=== PATIENT | female | born 1970 | race Caucasian/White ===

== ENCOUNTER 2017-02-09 19:26 | Emergency (ER) | payer SELFPAY ==
[~2017-02-09] VITALS: Ht 162.6 cm; Wt 67.2 kg
[~2017-02-09 19:26] MED LIST: CLIN300C8 PO; PRED20TA PO
[2017-02-09 19:36] VITALS: BP 138/80
[2017-02-09] MEDS ORDERED: ACETAMINOPHEN 325 MG TABLET PO ONE (19:45)
[2017-02-09] MEDS ORDERED: DIPHTH,PERTUSS(ACELL),TET TOX 0.5 ML DISP.SYRIN. VAX IM ONE (19:45)
--- NOTE | 2017-02-09 19:52 | PHYS DOC ---
Past History Past Medical History: Bipolar, Depression Past Surgical History: Other Alcohol Use: Occasionally Drug Use: None Adult General Chief Complaint Chief Complaint: FOOT INJURY PAIN HPI HPI 46-year-old female presenting to the emergency department today after falling approximately 2 feet while trying to put together a retaining wall and having 3 large bricks fall on her foot. They fell on her left foot. After the event, she had pain in her right foot that is sharp moderate to severe worse with ambulation and without alleviating factors. She denies any pain in her ankle or knee proximally. She did have mild abrasion on her right side of her right leg. Otherwise she denies head trauma or neck stiffness or neck pain. Review of systems is negative for chest pain shortness of breath abdominal pain nausea vomiting. All other review of systems is negative unless otherwise noted in history of present illness. Review of Systems Review of Systems SEE ABOVE. Current Medications Current Medications Current Medications Medications (Trade) Dose Ordered Sig/Mando Start Time Stop Time Status Last Admin Dose Admin Acetaminophen (Tylenol) 650 mg 1X ONCE 02/09/17 19:45 02/09/17 19:46 DC Diphtheria/ Tetanus/Acell Pertussis (Boostrix) 0.5 ml ONCE ONCE 02/09/17 19:45 02/09/17 19:46 DC Allergies Allergies Allergies Coded Allergies Type Severity Reaction Last Updated Verified Penicillins Allergy Intermediate 11/30/16 Yes codeine Allergy Intermediate 11/30/16 Yes Physical Exam Physical Exam Constitutional: Well developed, well nourished, no acute distress, non-toxic appearance. HENT: Normocephalic, atraumatic, bilateral external ears normal, oropharynx moist, no oral exudates, nose normal. [] Eyes: PERRLA, EOMI, conjunctiva normal, no discharge. [] Neck: Normal range of motion, no tenderness, supple, no stridor. [] Cardiovascular:Heart rate regular rhythm, no murmur [] Lungs & Thorax: Bilateral breath sounds clear to auscultation Abdomen: Bowel sounds normal, soft, no tenderness, no masses, no pulsatile masses. Skin: Warm, dry, no erythema, no rash. [] Back: No tenderness, no CVA tenderness. [] Extremities: right leg has no tenderness palpation in the hip or knee with good range of motion in both joints. No ecchymosis or swelling of the ankle. Good range of motion.She fires the TA, EH, FHL and Gastrocnemius soleus complex. Mild tingling in the lateral plantar nerve distribution. Otherwise normal sensation in the foot. 2+ PT and DP pulse. No pain to palpation on the medial or lateral malleolus. The patient has swelling over the lateral portion of her left foot. The remainder of the extremities are nontender with normal range of motion. She does have an abrasion on the right lateral aspect of her leg.\ Neurologic: Alert and oriented X 3, normal motor function, normal sensory function, no focal deficits noted. [] Psychologic: Affect normal, judgement normal, mood normal. [] Current Patient Data Vital Signs Vital Signs Date Time Temp Pulse Resp B/P (MAP) Pulse Ox O2 Delivery O2 Flow Rate FiO2 02/09/17 19:36 98.3 90 20 99 Room Air EKG EKG [] Radiology/Procedures Radiology/Procedures X-ray of the foot was negative for acute fracture. Reviewed by myself. [] Course & Med Decision Making Course & Med Decision Making Pertinent Labs and Imaging studies reviewed. (See chart for details) [] 46-year-old female presenting to the emergency department after injuring her left foot. Her secondary survey showed evidence of injury to her left foot and abrasion to her right leg otherwise was unremarkable. X-rays were obtained. Unremarkable. The patient was then discharged home in stable condition to follow up with their primary care physician over the next 2-3 days. They were to return if their symptoms worsened or if they were concerned for any reason. [id number] discharge instructions and return precautions were given. Patient' s questions were answered to their satisfaction. Patient is comfortable plan. Dragon Disclaimer Dragon Disclaimer This chart was dictated in whole or in part using Voice Recognition software in a busy, high-work load, and often noisy Emergency Department environment. It may contain unintended and wholly unrecognized errors or omissions. Departure Departure: Impression: Primary Impression: Injury of left foot Disposition: HOME, SELF-CARE Condition: STABLE Referrals: LUCI COWART MD (PCP) Additional Instructions: Thank you for allowing us to participate in your care today. Followup with your primary care physician in 3 days if your symptoms do not improve. If you do not have a primary care provider you can ask for a list of our primary care providers. Return to the emergency department you have any new or concerning findings. This should be evaluated by the primary care physician and any necessary consulting services for continued management within a few days after discharge. Return to emergency room if you have any new or concerning symptoms including but not limited to fever, chills, nausea, vomiting, intractable pain, any new rashes, chest pain, shortness of air, uncontrolled bleeding, difficulty breathing, and/or vision loss. You may have been prescribed medication that can change in your level of thinking and ability to operate machinery. These medications include hydrocodone and Ativan. Also, Benadryl has been known to do this as well. Be sure to check with your pharmacist and ask if the medications you've prescribed can affect your level of consciousness. I recommend not operating heavy machinery or driving while on medication such as these. Scripts Morphine Sulfate (MORPHINE SULFATE) 15 Mg Tablet 1 TAB PO PRN Q8HRS Y for SEVERE PAIN, #8 TAB Be careful as this medication may make you sleepy or drowsy. Do not drive or operate heavy machinery on this medication. Be sure to ask the pharmacist about other side effects that can exist such as constipation. Prov: SALOME HENSON MD 02/09/17 Problem Qualifiers Primary Impression: Injury of left foot Encounter type: initial encounter Qualified Codes: S99.922A - Unspecified injury of left foot, initial encounter SALOME HENSON MD February 09, 2017 19:52
[2017-02-09] MEDS ORDERED: MORP15TA PO (20:06)
--- NOTE | 2017-02-09 20:12 | RAD ---
PROCEDURE Three-view left foot study HISTORY Left foot injury. Bricks fell on dorsal surface of name foot. Pain and bruising. FINDINGS No acute fracture or dislocation or osteolytic process is seen in. Plantar and posterior spurs of the calcaneus are seen. No radiopaque foreign body is evident. IMPRESSION No acute fracture. Electronically signed by: Raymond Collazo MD (February 09, 2017 20:11:21)
== END 2017-02-09 20:45 | disposition home or self-care (01) ==
LOC: ER 19:31
DX: S99.922A Unspecified injury of left foot, initial encounter (principal); S80.811A Abrasion, right lower leg, initial encounter; Z88.6 Allergy status to analgesic agent; Z88.0 Allergy status to penicillin; W20.8XXA Other cause of strike by thrown, projected or falling object, initial encounter; Y93.89 Activity, other specified; Y99.8 Other external cause status; Y92.89 Other specified places as the place of occurrence of the external cause
CPT/HCPCS: 73630; 90471; 90715; 99284-25